=== PATIENT | female | born 1975 | race Caucasian/White ===

== ENCOUNTER 2018-08-28 16:07 | Emergency (ER) | payer OTHER ==
[~2018-08-28] VITALS: Ht 165.1 cm; Wt 95.3 kg
[2018-08-28 16:32] LABS: URINE BILIRUBIN NEGATIVE (Negative); URINE BLOOD NEGATIVE (Negative); URINE CLARITY CLEAR; URINE COLOR YELLOW; URINE GLUCOSE-RANDOM* NEGATIVE (Negative); URINE KETONES NEGATIVE (Negative); URINE LEUKOCYTES-REFLEX NEGATIVE (Negative); URINE NITRITE-REFLEX NEGATIVE (Negative); URINE PROTEIN (DIPSTICK) NEGATIVE (Negative); URINE SPECIFIC GRAVITY <= 1.005 (1.005-1.035); URINE UROBILINOGEN 0.2 E.U./dl (0.2-1.0)
[2018-08-28 16:59] LABS: BASOPHILS 0.7 % (0.0-2.0); EOSINOPHILS 5.9 % (0.0-3.0); HEMATOCRIT 35.5 % (37.0-47.0); HEMOGLOBIN 11.5 gm/dL (12.0-15.0); LYMPHOCYTES 30.5 % (24.0-44.0); MCH 26.9 pg (26.0-34.0); MCHC 32.4 g/dL (28.0-37.0); MONOCYTES 10.9 % (1.0-8.0); PLATELET COUNT 326 thou/uL (150-400); RBC 4.28 mil/uL (4.20-5.00); RDW 16.9 % (10.5-14.5); WBC 9.6 thou/uL (4.0-11.0)
[2018-08-28 17:06] LABS: CALCIUM 9.4 mg/dL (8.5-10.1); CREATININE 0.9 mg/dL (0.6-1.0)
[2018-08-28 17:12] LABS: TOTAL BILIRUBIN 0.1 mg/dL (<0.1-1.0); TOTAL PROTEIN 7.6 g/dL (6.4-8.2)
[2018-08-28] MEDS ORDERED: SYNTHROID175 MCG PO (18:28)
[2018-08-28] MEDS ORDERED: EFFEXOR XR150 MG PO (18:28)
[2018-08-28] MEDS ORDERED: ZANTAC 150MG T150 M1 PO (18:29)
[2018-08-28] MEDS ORDERED: PROTONIX 20 MG20 M1 PO (18:29)
[2018-08-28] MEDS ORDERED: CARAFATE 1 GM TA1 G1 PO (18:29)
[2018-08-28] MEDS ORDERED: HYDROXYZINE HCL25 M1 PO (18:30)
[2018-08-28] MEDS ORDERED: BUSPIRONE HCL10 MG PO (18:30)
[2018-08-28] MEDS ORDERED: ULTRAM 50MG TAB50 MG PO (19:55)
[2018-08-28 20:05] VITALS: BP 131/86
== END 2018-08-28 20:05 | disposition home or self-care (01) ==
LOC: ER 16:07
PROVIDERS: Emergency Medicine
DX: R10.32 Left lower quadrant pain (principal)